=== PATIENT | female | born 2000 | race Caucasian/White ===

== ENCOUNTER 2021-07-16 14:25 | Emergency (ER) | payer OTHER ==
[2021-07-16 15:16] LABS: HEMOGLOBIN 12.7 gm/dl (12.3-15.3); RED BLOOD COUNT 5.08 M/UL (4.00-5.10); WHITE BLOOD COUNT 7.4 K/UL (4.5-11.0)
[2021-07-16 15:52] LABS: BUN/CREATININE RATIO 14 (0-10)
[2021-07-16] MEDS ORDERED: MUCINEX DM ER1 EACH PO (17:34)
== END 2021-07-16 17:40 | disposition home or self-care (01) ==
LOC: ER1 14:25
PROVIDERS: Physician Assistant Medical
DX: U07.1 COVID-19 (principal); J12.82 Pneumonia due to coronavirus disease 2019; E03.9 Hypothyroidism, unspecified; F17.200 Nicotine dependence, unspecified, uncomplicated
CPT/HCPCS: 0240U; 71045; 80053; 81001; 84703; 85025; 87081; 87880; 99283